=== PATIENT | male | born 1955 | race Caucasian/White ===

== ENCOUNTER 2017-11-29 06:19 | Day surgery (SDC) | payer OTHER ==
[2017-11-29] MEDS: POLYMYXIN/BACITRACIN 1L IRRIG (07:23)
[2017-11-29 07:37] LABS: ADD MAN DIFF? NO
[2017-11-29 07:40] LABS: BASOPHILS % 0.2 % (0.0-2.0); EOSINOPHILS # 0.1 10^3/ul (0.0-0.5); EOSINOPHILS % 2.4 % (0.0-7.0); HEMOGLOBIN 14.8 g/dl (14.0-18.0); LYMPHOCYTES # 1.4 10^3/ul (0.8-2.9); LYMPHOCYTES % 30.1 % (15.0-51.0); MEAN CORPUSCULAR HEMOGLOBIN 29.7 pg (29.0-33.0); MEAN CORPUSCULAR HGB CONC 33.6 g/dl (32.0-37.0); MEAN CORPUSCULAR VOLUME 88.4 fl (82.0-101.0); MEAN PLATELET VOLUME 8.7 fl (7.4-10.4); MONOCYTE # 0.4 10^3/ul (0.3-0.9); MONOCYTES % 9.5 % (0.0-11.0); NEUTROPHIL # 2.6 10^3/ul (1.6-7.5); NEUTROPHILS % 57.6 % (39.0-77.0); PLATELET COUNT 226 10^3/UL (140-415); RED BLOOD COUNT 4.98 10^6/ul (4.70-6.10); RED CELL DISTRIBUTION WIDTH 12.3 % (11.5-14.5)
[2017-11-29 07:40] LABS: WHITE BLOOD COUNT 4.6 10^3/ul (4.8-10.8)
[2017-11-29 07:59] LABS: INR 0.92; PROTIME 12.4 Sec (11.9-14.9)
[2017-11-29 08:00] LABS: ALANINE AMINOTRANSFERASE 33 IU/L (13-69); ALBUMIN/GLOBULIN RATIO 1.29; ALKALINE PHOSPHATASE 66 IU/L (42-121); ANION GAP 15 (8-16); ASPARTATE AMINO TRANSFERASE 31 IU/L (15-46); BILIRUBIN,INDIRECT 0.8 mg/dl (0-1.1); BILIRUBIN,TOTAL 0.8 mg/dl (0.2-1.3); CARBON DIOXIDE 27 mmol/L (21-31); CHLORIDE 107 mmol/L (97-110); GLUCOSE 126 mg/dl (70-220); PARTIAL THROMBOPLASTIN TIME 32.6 Sec (25.0-35.0); TOTAL PROTEIN 7.1 g/dl (6.1-8.1)
[2017-11-29 08:04] LABS: BLOOD UREA NITROGEN 18 mg/dl (7-20); CALCIUM 8.8 mg/dl (8.4-10.2); CREATININE 0.78 mg/dl (0.61-1.24); POTASSIUM 4.1 mmol/L (3.5-5.1); SODIUM 145 mmol/L (135-144)
[2017-11-29] MEDS ORDERED: PROPOFOL 20 ML (08:05)
[2017-11-29] MEDS ORDERED: ROCURONIUM 50 MG INJ (08:36)
[2017-11-29] MEDS ORDERED: CEFAZOLIN 1 GM INJ (08:36)
[2017-11-29] MEDS ORDERED: ONDANSETRON 4 MG INJ (08:36)
[2017-11-29] MEDS ORDERED: DEXAMETHASONE 4 MG/ML 1 ML INJ (08:36)
[2017-11-29] MEDS ORDERED: LIDOCAINE 2% (SDV) 5 ML INJ (08:37)
[2017-11-29] MEDS: BUPIVACAINE 0.25% (MPF) 30 ML INJ (08:38)
[2017-11-29] MEDS ORDERED: KETOROLAC 30 MG INJ (08:43)
[2017-11-29] MEDS ORDERED: SUGAMMADEX SODIUM 200 MG/2 ML VIAL IV (08:44)
[2017-11-29] MEDS ORDERED: DIPHENHYDRAMINE 50 MG INJ IV (09:00)
[2017-11-29] MEDS ORDERED: HYDROmorphONE (0.2 MG/ML) 10ML SYG IV ×3 (09:00)
[2017-11-29] MEDS: HYDROCODONE/APAP (5/325) TAB PO (09:00)
[2017-11-29] MEDS ORDERED: EPHEDrine SULFATE 50 MG/5 ML SYG IV (09:00)
[2017-11-29] MEDS ORDERED: METOCLOPRAMIDE 10 MG INJ IV (09:00)
[2017-11-29] MEDS ORDERED: ONDANSETRON 4 MG INJ IV (09:00)
[2017-11-29] MEDS ORDERED: MIDAZOLAM 1 MG/ML 2 ML INJ IV (09:00)
[2017-11-29] MEDS ORDERED: LABETALOL HCL 20MG INJ IV (09:00)
[2017-11-29] MEDS ORDERED: ALBUTEROL 0.083% (NEB) 2.5 MG/3 ML AMP HHN (09:00)
[2017-11-29] MEDS ORDERED: FENTAnyl 50 MCG/ML VIAL IV (09:00)
[2017-11-29] MEDS ORDERED: MEPERIDINE 25 MG INJ IV (09:00)
[2017-11-29] MEDS ORDERED: hydrALAzine 20 MG INJ IV (09:00)
[2017-11-29] MEDS ORDERED: FENTAnyl 50 MCG/ML VIAL (09:00)
[2017-11-29] MEDS ORDERED: OXYCODONE/ACETAMINOPHEN (5/325) TAB PO ×2 (09:00)
[2017-11-29] MEDS: FENTAnyl 50 MCG/ML VIAL IV ×3 (09:07→09:30)
== END 2017-11-29 11:18 | disposition home or self-care (01) ==
LOC: SDS 06:19
DX: K43.6 Other and unspecified ventral hernia with obstruction, without gangrene (principal); E11.9 Type 2 diabetes mellitus without complications
CPT/HCPCS: 49653; 71045; 80053; 82962; 85025; 85610; 85730; 93005

== ENCOUNTER 2018-07-10 14:01 | Emergency (ER) | payer OTHER | END 2018-07-10 17:08 | disposition home or self-care (01) | LOC: FTE 14:01 | DX: H92.01 Otalgia, right ear (principal); I10 Essential (primary) hypertension; E11.9 Type 2 diabetes mellitus without complications; Z79.84 Long term (current) use of oral hypoglycemic drugs | CPT/HCPCS: 99283; Z7502 ==

== ENCOUNTER 2018-08-22 13:00 | Emergency (ER) | payer OTHER ==
[2018-08-22 14:33] LABS: ADD MAN DIFF? NO
[2018-08-22 14:36] LABS: WHITE BLOOD COUNT 5.3 10^3/ul (4.8-10.8)
[2018-08-22 14:36] LABS: BASOPHILS % 0.2 % (0.0-2.0); EOSINOPHILS # 0.1 10^3/ul (0.0-0.5); EOSINOPHILS % 2.1 % (0.0-7.0); HEMATOCRIT 45.5 % (42.0-52.0); HEMOGLOBIN 15.3 g/dl (14.0-18.0); LYMPHOCYTES # 1.3 10^3/ul (0.8-2.9); LYMPHOCYTES % 24.5 % (15.0-51.0); MEAN CORPUSCULAR HEMOGLOBIN 29.6 pg (29.0-33.0); MEAN CORPUSCULAR HGB CONC 33.6 g/dl (32.0-37.0); MEAN PLATELET VOLUME 8.4 fl (7.4-10.4); MONOCYTE # 0.4 10^3/ul (0.3-0.9); MONOCYTES % 7.7 % (0.0-11.0); NEUTROPHIL # 3.5 10^3/ul (1.6-7.5); NEUTROPHILS % 65.3 % (39.0-77.0); PLATELET COUNT 229 10^3/UL (140-415); RED BLOOD COUNT 5.17 10^6/ul (4.70-6.10); RED CELL DISTRIBUTION WIDTH 12.1 % (11.5-14.5)
[2018-08-22 14:50] LABS: INR 0.92; PROTIME 12.5 Sec (11.9-14.9)
[2018-08-22 14:51] LABS: PARTIAL THROMBOPLASTIN TIME 29.7 Sec (23.0-35.0)
[2018-08-22 14:53] LABS: BLOOD UREA NITROGEN 13 mg/dl (7-20); CALCIUM 9.4 mg/dl (8.4-10.2); CARBON DIOXIDE 26 mmol/L (21-31); CREATININE 0.81 mg/dl (0.61-1.24); Estimated GFR > 60 mL/min (>60); GLUCOSE 150 mg/dl (70-220); POTASSIUM 4.1 mmol/L (3.5-5.1); SODIUM 141 mmol/L (135-144)
[2018-08-22 14:54] LABS: ANION GAP 13 (5-13); CHLORIDE 102 mmol/L (97-110)
== END 2018-08-22 19:46 | disposition home or self-care (01) ==
LOC: E/R 13:00
DX: H54.60 Unqualified visual loss, one eye, unspecified (principal); I10 Essential (primary) hypertension; E11.9 Type 2 diabetes mellitus without complications; R51 Headache
CPT/HCPCS: 36415; 70553; 80048; 85025; 85610; 85730; 99285-25

== ENCOUNTER 2019-03-22 17:52 | Emergency (ER) | payer OTHER | END 2019-03-22 19:24 | disposition home or self-care (01) | LOC: FTE 19:54 | DX: T16.2XXA Foreign body in left ear, initial encounter (principal); I10 Essential (primary) hypertension; E11.9 Type 2 diabetes mellitus without complications; X58.XXXA Exposure to other specified factors, initial encounter; Y92.9 Unspecified place or not applicable; Z79.84 Long term (current) use of oral hypoglycemic drugs | CPT/HCPCS: 69200; 99283-25 ==